=== PATIENT | female | born 1995 ===

== ENCOUNTER 2017-04-26 19:35 | Inpatient (IN) | payer OTHER ==
[2017-04-26] MEDS: DEXTROSE 5%-LACTATED RINGERS 1,000 ML IV SCH (23:30)
[2017-04-27 00:24] LABS: BASOPHIL 0.1 % (0-2.0); EOSINOPHIL 0.9 % (0-4.5); MCH 26.3 pg (25.7-33.7); MCHC 33.3 g/dl (32.0-36.0); MEAN CELL VOLUME 78.9 fl (80-96); NEUTROPHILS 69.7 % (42.8-82.8); PLATELET COUNT 403 K/MM3 (134-434); RDW 14.5 % (11.6-15.6); WHITE BLOOD COUNT 7.4 K/mm3 (4.0-10.0)
[2017-04-27 00:28] VITALS: BMI 30.6
[2017-04-27 00:36] LABS: INR 0.89 (0.82-1.09); PROTHROMBIN TIME (PATIENT) 10.1 SEC (9.98-11.88)
[2017-04-27 00:37] LABS: URINE APPEARANCE SLCLOUDY; URINE BILIRUBIN NEGATIVE (NEGATIVE); URINE BLOOD 1+ (NEGATIVE); URINE COLOR YELLOW; URINE GLUCOSE (UA) NEGATIVE (NEGATIVE); URINE KETONE NEGATIVE (NEGATIVE); URINE NITRITE NEGATIVE (NEGATIVE); URINE PROTEIN NEGATIVE (NEGATIVE); URINE UROBILINOGEN NEGATIVE mg/dL (0.2-1.0)
[2017-04-27 00:38] LABS: ACTIVATED PTT 27.3 SECONDS (26.9-34.4)
[2017-04-27] MEDS ORDERED: DINOPROSTONE 10 MG VAGINAL SUPPOSITORY VG ONE ×2 (00:45→11:45)
[2017-04-27 00:48] LABS: ALBUMIN 2.8 g/dl (3.4-5.0); ALK PHOS 296 U/L (45-117); ANION GAP 12 (8-16); BILIRUBIN,TOTAL 0.3 mg/dL (0.2-1.0); CALCIUM 7.9 mg/dL (8.5-10.1); CO2 20 mmol/L (21-32); CREATININE 0.5 mg/dL (0.55-1.02); GLUCOSE,RANDOM 86 mg/dL (74-106); SGOT/AST 21 U/L (15-37); SGPT/ALT 16 U/L (12-78); TOT PROT 6.6 g/dl (6.4-8.2)
[2017-04-27 00:54] LABS: URINE MUCUS RARE; URINE RBC 12; URINE WBC 3
[2017-04-27] MEDS ORDERED: AMPICILLIN - 2 GM in SODIUM CHLORIDE 100 ML IVPB ONE (01:00)
[2017-04-27 01:13] LABS: HIV 1 & 2 AB NEGATIVE; HIV 1 AGp24 NEGATIVE
[2017-04-27 01:14] LABS: URINE MARIJUANA THC NEGATIVE ng/ml (CUTOFF=50)
[2017-04-27] MEDS: AMPICILLIN - 1 GM in SODIUM CHLORIDE 100 ML IVPB SCH ×4 (05:00→17:30)
[2017-04-27] MEDS ORDERED: OXYTOCIN 15 UNITS/ LR 250 ML 15 UNIT/250 ML INFUS.BAG IVPB SCH ×2 (06:30→14:15)
[2017-04-27] MEDS: DEXTROSE 5%-LACTATED RINGERS 1,000 ML IV SCH (07:55)
[2017-04-27] MEDS ORDERED: BUTORPHANOL TARTRATE 1 MG/ML VIAL IVPUSH ONE ×2 (09:00→09:45)
[2017-04-27] MEDS ORDERED: PROMETHAZINE HCL 25 MG/1 ML VIAL IVPUSH ONE (09:00)
[2017-04-27] MEDS ORDERED: BUTORPHANOL TARTRATE 1 MG/ML VIAL IVPUSH PRN (09:30)
--- NOTE | 2017-04-27 09:41 | HP ---
Past Medical History - Admission Chief Complaint: Labor pain History of Present Illness: 21 yo , @ 40 weeks gestation, EDC 04/26/17, admitted for labor pain. Patient had care at [facility]. record is not available. History Source: Patient Limitations to Obtaining History: No Limitations - Past Medical History ...: 1 ...Para: 0 ...Term: 0 ...: 0 ...Spon : 0 ...Induced : 0 ...Multiple Gestation: 0 ...LMP: 07/20/16 ... Weeks Gestation by Dates: 40.0 ...EDC by Dates: 04/26/17 - Past Surgical History Past Surgical History: Yes: None Hx Myomectomy: No Hx Transabdominal Cerclage: No - Smoking History Smoking history: Never smoked Have you smoked in the past 12 months: No - Alcohol/Substance Use Hx Alcohol Use: No History of Substance Use: reports: None - Social History Usual Living Arrangement: Yes: With Significant Other History of Recent Travel: No Home Medications - Allergies Allergies/Adverse Reactions: Allergies Allergy/AdvReac Type Severity Reaction Status Date / Time No Known Allergies Allergy Verified 04/26/17 20:41 - Home Medications Home Medications: Ambulatory Orders NK [No Known Home Medication] 04/26/17 Family Disease History - Family Disease History Family History: Unremarkable Review of Systems - Review of Systems Constitutional: reports: No Symptoms Eyes: reports: No Symptoms HENT: reports: No Symptoms Neck: reports: No Symptoms Cardiovascular: reports: No Symptoms Respiratory: reports: No Symptoms Gastrointestinal: reports: No Symptoms Genitourinary: reports: Pain Breasts: reports: No Symptoms Reported Musculoskeletal: reports: No Symptoms Integumentary: reports: No Symptoms Neurological: reports: No Symptoms Psychiatric: reports: No Symptoms Pain Intensity: 8 Physical Exam - Maternity Vital Signs: Vital Signs Temperature 97.9 F 04/27/17 08:00 Pulse Rate 89 04/27/17 09:00 Respiratory Rate 18 04/27/17 09:00 Blood Pressure 114/75 04/27/17 09:00 O2 Sat by Pulse Oximetry (%) Constitutional: Yes: Well Nourished Eyes: Yes: Conjunctiva Clear HENT: Yes: Atraumatic Neck: Yes: Supple Cardiovascular: Yes: Regular Rate and Rhythm Lungs: Clear to auscultation - Abdominal Exam/OB Number of Fetuses: Single Presentation: Vertex - Vaginal Exam/OB Dilatation (cm): 2 Effacement (%): 80 Presentation: Vertex/Position Station: -2 - Physical Exam Musculoskeletal: Yes: WNL Extremities: Yes: WNL ...Motor Strength: WNL Psychiatric: Yes: Alert, Oriented - Labs Lab Results: CBC, BMP 04/26/17 00:00 04/26/17 00:00 Problem List - Problems (1) Pain during labor Code(s): O99.89 - OTH DISEASES AND CONDITIONS COMPL PREG/CHLDBRTH; R52 - PAIN, UNSPECIFIED Assessment/Plan Pain during labor Admit for augmentation of labor Analgesia as needed GBS prophylaxis Anticipate
[2017-04-27 10:22] LABS: URINE LEUK ESTERASE Negative (NEGATIVE)
[2017-04-27] MEDS ORDERED: FENTANYL/BUPIVACAINE/NS/PF - PCEA - 50 ML DISP.SYRIN EP SCH (12:30)
[2017-04-27] MEDS: ELECTROLYTE-148 SOLN 1,000 ML IV SCH ×2 (12:30→16:00)
--- NOTE | 2017-04-27 13:06 | PN ---
Progress Note (short form) - Note Progress Note: cx 3 cm 80 vx -1 mr, fhr cat 1,, contraction regular
--- NOTE | 2017-04-27 14:03 | PN ---
Progress Note (short form) - Note Progress Note: cx 4 cm, 100 vx -1 mr, fhr cat 1. irregular contraction, cervidil removed , will start on pitocin , rba discussed
[2017-04-27] MEDS ORDERED: TUBERCULIN PPD 5 TU/0.1ML SYRINGE (IN PATIENT USE ONLY) ID ONE (15:30)
[2017-04-27] MEDS ORDERED: ELECTROLYTE-148 SOLN 500 ML IV ONE (18:00)
[2017-04-27] MEDS ORDERED: METHYLERGONOVINE MALEATE 0.2 MG/1 ML AMP IM PRN (18:42)
[2017-04-27] MEDS ORDERED: BENZOCAINE 28 GM HEMORRHOIDAL OINTMENT TP PRN (18:42)
[2017-04-27] MEDS ORDERED: oxyCODONE HCL 5 MG TABLET PO PRN (18:42)
[2017-04-27] MEDS ORDERED: BISACODYL 10 MG SUPP.RECT RC PRN (18:42)
[2017-04-27] MEDS ORDERED: BENZOCAINE 20% 57 GM BOTTLE TP PRN (18:42)
[2017-04-27] MEDS ORDERED: D5W-LR W/ 20 UNITS OXYTOCIN 20 UNIT/1,000 ML INFUS.BAG IV SCH (18:45)
[2017-04-27 18:54] LABS: ARTERIAL BLOOD GAS BASE EXCESS -6.9 meq/l (-2-2); ARTERIAL BLOOD GAS HCO3 23.8 meq/L (22-26)
[2017-04-27 18:58] LABS: VENOUS PH 7.31 (7.32-7.42)
[2017-04-27 19:00] LABS: ARTERIAL BLOOD GAS PO2 13.2 mmHg (80-100); ARTERIAL BLOOD GAS pH 7.17 (7.35-7.45)
[2017-04-27 19:01] LABS: ARTERIAL BLD GAS O2 SATURATION 12.3 % (90-98.9)
[2017-04-28] MEDS: ACETAMINOPHEN 325 MG TABLET (FP) PO PRN ×3 (00:12→21:47)
[2017-04-28] MEDS: IBUPROFEN 600 MG TABLET (FP) PO PRN ×3 (00:15→21:47)
[2017-04-28] MEDS: FERROUS SO4 325 MG TABLET (FP) PO SCH ×3 (00:16→21:47)
--- NOTE | 2017-04-28 07:43 | PN ---
Post Progress Note - Subjective Subjective: pt c/o perineal pain last night,,less now she was unabvle to void st catheterization done 700 ml urine drained , repeat catheter ( bojorquez ) was inserted after 4 hrs since she could not void . h/o epidural labor analgesia Post Day: 1 Type of Delivery: Vital Signs: Vital Signs Temperature 97.7 F 04/28/17 05:38 Pulse Rate 75 04/28/17 05:38 Respiratory Rate 18 04/28/17 05:38 Blood Pressure 109/71 04/28/17 05:38 O2 Sat by Pulse Oximetry (%) 100 04/27/17 19:15 Breast Exam: Yes: Soft. No: Engorged Uterus: Yes: Fundus Firm, Fundus below umbilicus, Non-tender Lochia: Yes: Rubra Lochia, amount: Moderate Extremities: Yes: Calves non-tender Perineum: Yes: Laceration (vulva edema noted ) Activity: Other (not oob yet ) - Labs Labs: CBC WBC 7.4 K/mm3 (4.0-10.0) 04/26/17 00:00 RBC 4.11 M/mm3 (3.60-5.2) 04/26/17 00:00 Hgb 10.8 GM/dL (10.7-15.3) 04/26/17 00:00 Hct 32.4 % (32.4-45.2) 04/26/17 00:00 MCV 78.9 fl (80-96) L 04/26/17 00:00 MCH 26.3 pg (25.7-33.7) 04/26/17 00:00 MCHC 33.3 g/dl (32.0-36.0) 04/26/17 00:00 RDW 14.5 % (11.6-15.6) 04/26/17 00:00 Plt Count 403 K/MM3 (134-434) 04/26/17 00:00 MPV 7.0 fl (7.5-11.1) L 04/26/17 00:00 Neutrophils % 69.7 % (42.8-82.8) 04/26/17 00:00 Lymphocytes % 22.3 % (8-40) 04/26/17 00:00 Monocytes % 7.0 % (3.8-10.2) 04/26/17 00:00 Eosinophils % 0.9 % (0-4.5) 04/26/17 00:00 Basophils % 0.1 % (0-2.0) 04/26/17 00:00 Assessment/Plan stable. pp urine retention Plan remove bojorquez catheter at 12 o'clock . encourage ambulation pp cbc pending
[2017-04-28] MEDS: WITCH HAZEL 50% (TUCKS) 40 PAD/JAR PAD TP PRN (08:00)
[2017-04-28 08:42] LABS: BASOPHIL 0.1 % (0-2.0); EOSINOPHIL 0.2 % (0-4.5); MCH 25.6 pg (25.7-33.7); MCHC 32.3 g/dl (32.0-36.0); MEAN CELL VOLUME 79.4 fl (80-96); MEAN PLT VOLUME 6.7 fl (7.5-11.1); NEUTROPHILS 80.3 % (42.8-82.8); PLATELET COUNT 350 K/MM3 (134-434); RDW 14.9 % (11.6-15.6); WHITE BLOOD COUNT 15.2 K/mm3 (4.0-10.0)
[2017-04-28] MEDS: PRENATAL VITAMINS W/ FOLIC ACID TABLET (FP) PO SCH (09:58)
[2017-04-28] MEDS ORDERED: DIPHTH,PERTUSS(ACELL),TET 0.5 ML DISP.SYRIN IM ONE (10:00)
[2017-04-28] MEDS ORDERED: SENNOSIDES/DOCUSATE COMBO (SENNA PLUS) TABLET (UD) PO PRN (22:00)
[2017-04-29] MEDS: IBUPROFEN 600 MG TABLET (FP) PO PRN ×2 (08:30→16:13)
[2017-04-29] MEDS: ACETAMINOPHEN 325 MG TABLET (FP) PO PRN ×2 (08:31→16:14)
--- NOTE | 2017-04-29 09:15 | DS ---
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 Vital Signs: Vital Signs Temperature 98.0 F 04/28/17 22:00 Pulse Rate 83 04/28/17 22:00 Respiratory Rate 18 04/28/17 22:00 Blood Pressure 113/84 04/28/17 22:00 O2 Sat by Pulse Oximetry (%) 100 04/27/17 19:15 Constitutional: Yes: Well Nourished Eyes: Yes: Conjunctiva Clear HENT: Yes: Atraumatic Neck: Yes: Supple, Trachea Midline Cardiovascular: Yes: Regular Rate and Rhythm Respiratory: Yes: Regular, CTA Bilaterally Gastrointestinal: Yes: Normal Bowel Sounds Vaginal Exam: Yes: Normal Cervix: Yes: Normal Uterus: Yes: Normal ....Post : Yes: Uterus firm Breast(s): Yes: WNL Musculoskeletal: Yes: WNL Extremities: Yes: WNL Wound/Incision: Yes: Well Approximated Neurological: Yes: Alert, Oriented Psychiatric: Yes: Alert, Oriented Labs: CBC, BMP 04/28/17 08:00 04/26/17 00:00 Delivery - Delivery Type of Anesthesia: Local, Epidural Episiotomy/Laceration: Midline EBL (cc): 300 Delivery, Single - Stages of Labor Date 1st Stage Initiatied: 04/27/17 Time 1st Stage Initiated: 08:30 Date 2nd Stage Initiated: 04/27/17 Time 2nd Stage Initiated: 17:40 Date of Delivery: 04/27/17 Time of Delivery: 18:20 Time Placenta Delivered: 18:25 - Condition of Infant 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 Present: No Gender: Male Weight: 7 lb 2 oz Position: Left, OA Total Hours ROM (Hrs/Mins): 17hrs/25mins - 1 Minute Total Score: 9 5 Minutes Total Score: 9 - Platinum Feeding Plan Initial Plan: Elected not to breastfeed exclusively throughout hospitalization Discharge Summary Reason For Visit: INDUCTION Current Active Problems Pain during labor (Acute) Status post (Acute) Procedures: Principal: delivery Hospital Course: Routine post op care Condition: Good - Instructions Diet, Activity, Other Instructions: Regular diet No driving, no lifting x 4 weeks F/U in clinic in one week Referrals: Stevenson Hankins MD [Staff Physician] - Disposition: HOME - Home Medications Comprehensive Discharge Medication List: Ambulatory Orders NK [No Known Home Medication] 04/26/17
[2017-04-29 09:34] VITALS: BP 111/69; PULSE 69; TEMP 98.5
[2017-04-29] MEDS: FERROUS SO4 325 MG TABLET (FP) PO SCH (10:00)
[2017-04-29] MEDS: PRENATAL VITAMINS W/ FOLIC ACID TABLET (FP) PO SCH (10:00)
[2017-04-29] MEDS: WITCH HAZEL 50% (TUCKS) 40 PAD/JAR PAD TP PRN (11:08)
== END 2017-04-29 17:00 | disposition home or self-care (01) | DRG 560 ==
LOC: JDEL 19:35 → JLDR 22:55 → J3W 04-27 20:45
PROVIDERS: ADMIT Obstetrics & Gynecology; ATTEND Obstetrics & Gynecology
PROC: 10E0XZZ Delivery of Products of Conception, External Approach (ICD-10-PCS; principal; 2017-04-27)
PROC: 0W8NXZZ Division of Female Perineum, External Approach (ICD-10-PCS; 2017-04-27)
PROC: 0T9B70Z Drainage of Bladder with Drainage Device, Via Natural or Artificial Opening (ICD-10-PCS; 2017-04-27)
DX: O48.0 Post-term pregnancy (principal); O75.89 Other specified complications of labor and delivery; R33.8 Other retention of urine; Z3A.40 40 weeks gestation of pregnancy; Z37.0 Single live birth
CPT/HCPCS: 36415; 36600; 59409; 76819-TC; 80053; 80307; 81003; 81015; 82803; 85025; 85610; 85730; 86593; 86762; 86850; 86900; 86901; 87340; 87389; 90715